=== PATIENT | male | born 2000 | race Caucasian/White ===

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

== ENCOUNTER 2020-06-21 16:59 | Emergency (ER) | payer BC, SELFPAY ==
[2020-06-21 17:16] VITALS: BP 125/61; PULSE 77; RESP 20; TEMP 36.6; O2SAT 99; BMI 26.8
--- NOTE | 2020-06-21 17:25 | HMH.EDUTC ---
[facility] – [place], [place] Disposition Clinical Impression: Exposure to COVID-19 virus Diarrhea Qualifiers: Diarrhea type: unspecified type Qualified Code(s): R19.7 - Diarrhea, unspecified Disposition: Home, Self-Care Condition on Discharge: Good Instructions: Preventing the Spread of Coronavirus Discharge Instructions Additional Instructions: You have been tested for COVID19 and your stool has also been sent for testing. Both of these should be available to your for results later tonight. Referrals: Choco Bowen MD [Primary Care Provider] - Time of Disposition: 17:39 Medical Decision Making - Jonh Inquiry Pt receiving controlled substance: No Vital Signs: 06/21/20 17:16 Temperature 97.8 F Temperature Source Oral Pulse Rate [Left Brachial] 77 Respiratory Rate 20 Blood Pressure [Left Arm] 125/61 Blood Pressure Mean [Left Arm] 82 Blood Pressure Source [Left Arm] Automatic Cuff Blood Pressure Position [Left Arm] Sitting 02 Sat by Pulse Oximetry 99 Oxygen Delivery Method Room Air Orders (Tests/Meds): ORDERS Category Date Time Status Diarrhea 23 Panel, PCR Stat Lab 06/21/20 17:24 Ordered [facility] – [place], [place] HPI - General Stated complaint: Sore throat, diarrhea Time Seen by Provider: 06/21/20 17:25 Mode of Arrival: Ambulatory Source of Information: Patient Limitations: No Limitations Description of Symptoms (Recalled from Triage Doc. by RN): PATIENT C/O DIARRHEA, STOMACH CRAMPING, COUGH, AND COLD SWEATS X 2 DAYS HEENT Symptoms (Recalled from RN notes): No Resp Symptoms (Recalled from RN notes): Yes Skin Symptoms (Recalled from RN notes): No MS Symptoms (Recalled from RN notes): No Functional Status (Recalled from RN notes): WNL - History of Present Illness Provider Complaint: Sore throat, cough, abdominal cramps and diarrhea X 2 days. No fever. Denies ear pain. Denies headache, sinus pressure, sinus congestion. Denies vomiting. Cough is occasionally productive. He does smoke. 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 Onset (ago): day(s) (2) Location: abdomen Relieving factors: none Exacerbating factors: none Associated symptoms: cough Treatments prior to arrival: none - Related Data Previous Rx's Medication Instructions Recorded olanzapine 5 mg tablet 5 mg PO QHS #30 tab 05/30/20 Allergies Allergy/AdvReac Type Severity Reaction Status Date / Time risperidone [From RISPERDAL] Allergy Mild Verified 01/20/20 13:26 - Worker's Comp Is this a Worker's Comp case?: No [facility] History - Hepatitis A Screen Drug use history?: No High risk sexual behaviors?: No History of sexually transmitted infection?: No Currently employed?: No Childcare worker?: No Do you have indoor plumbing?: Yes Do you have electricity?: Yes Attestation statement:: This patient has been screened for Hepatitis A risk factors. I have reviewed the patient's past medical history: Yes Medical History: Reports:: Anxiety, Depression, Hypertension Other Medical History: Reports: Other Comment: ADHD,Bipolar Other Surgeries: Yes: No Previous Surgery Amputation: No Fractures: No - Social History Smoking Status: Current every day smoker Tobacco Type: cigarettes # Packs/Day (cigarettes): 1 Alcohol Intake: never Alcohol Intake Frequency:: holidays/special occasions only Substance Use Type: marijuana Occupational Status: other Housing: house - Psychiatric History Pschychiatric History:: Reports:: Anxiety, Depression Family Hx:: Unable to obtain ROS Obtained: Yes All systems reviewed & no additional complaints - Constitutional Constitutional: Denies body ache, Denies chills, Denies fatigue, Denies fever(s), Denies malaise - Eyes Eyes: Denies eye discharge - ENT Ears, Nose, Mouth, and Throat: Denies dizziness, Denies nasal congestion, Denies sinus pain, Denies sinus pressure, Reports sore throat - Respiratory Respiratory: Yes cough, No dyspnea - Gastrointestinal
[2020-06-21 17:53] VITALS: BP 125/61; PULSE 77; RESP 20; TEMP 36.6; O2SAT 99
[2020-06-21 17:54] LABS: Adenovirus F 40/41, stool Not Detected (NotDetected); Astrovirus Not Detected (NotDetected); Campylobacter Not Detected (NotDetected); Cryptosporidium Not Detected (NotDetected); Cyclospora Cayetanesis Not Detected (NotDetected); Entamoeba histolytica Not Detected (NotDetected); Enteropathogenic E coli Not Detected (NotDetected); Enterotoxigenic E coli Not Detected (NotDetected); Giardia lamblia Not Detected (NotDetected); Norovirus Not Detected (NotDetected); Plesimonas Shigalloides, PCR Not Detected (NotDetected); Rotavirus A Not Detected (NotDetected); Salmonella, PCR Not Detected (NotDetected); Sapovirus Not Detected (NotDetected); Shiga-like toxin E coli Not Detected (NotDetected); Shigella Enterovasive E coli Not Detected (NotDetected); Vibrio Cholerae Not Detected (NotDetected); Vibrio, PCR Not Detected (NotDetected); Yersinia Entercolitica, PCR Not Detected (NotDetected)
[2020-06-21 20:17] LABS: Clostridium Difficile A/B, PCR Detected (NotDetected); Enteroaggregative E coli Detected (NotDetected)
== END 2020-06-21 18:02 | disposition home or self-care (01) ==
PROVIDERS: Emergency Provider Physician Assistant; PCP Emergency Medicine
DX: Z20.828 Contact with and (suspected) exposure to other viral communicable diseases (principal); F17.210 Nicotine dependence, cigarettes, uncomplicated; F41.8 Other specified anxiety disorders; Z88.8 Allergy status to other drugs, medicaments and biological substances
CPT/HCPCS: 87507; 99202; U0003

== ENCOUNTER 2020-07-13 21:02 | Emergency (ER) | payer BC, SELFPAY ==
[2020-07-13 21:03] VITALS: BP 129/71; PULSE 91; RESP 16; TEMP 36.9; O2SAT 95; BMI 26.6
--- NOTE | 2020-07-13 21:12 | PC.NURSE ---
Pt refuses to have IV, Notified
--- NOTE | 2020-07-13 21:18 | HMH.EDGENADL ---
ED Disposition Clinical Impression: Nausea Disposition: Home, Self-Care Condition on Discharge: Good Prescriptions: Ondansetron [Zofran 4mg ODT] 4 mg PO Q6H PRN #20 tab.rapdis PRN Reason: Nausea Prescription Printed Referrals: Choco Bowen MD [Primary Care Provider] - - Critical Care Critical Care Time: No Attestation: On 07/13/20, the high probability of a clinically significant, sudden or life threatening deterioration of the following system(s) required my full and direct attention, intervention and personal management. The time I documented below is in addition to time spent performing reported procedures but includes the following listed in this critical care notation. Medical Decision Making - Jonh Inquiry Pt receiving controlled substance: No Medical Decision Narrative: In summary patient presents for nausea. Patient's vitals are well-appearing, no tachycardia, no hypotension, patient is stable. Patient abdominal exam benign, nontender to palpation. Patient requesting Zofran, does not want IV access, would like a work note and nausea medication. Patient discharged home with prescription for Zofran. General Adult HPI - General Stated complaint: NAUSA Time Seen by Provider: 07/13/20 21:10 Mode of Arrival: Ambulatory Source of Information: Patient Limitations: No Limitations - History of Present Illness HPI narrative: Patient presents for nausea. Patient has not had episodes of vomiting, diarrhea, abdominal pain. Patient is concerned that there is something else going on patient patient does not want any IVs at this time, just wants a general work-up without labs. Patient denies drinking heavily last night, states that he smokes weed but denies any other illicit drugs, denies any other surgical history. Has no fever, chills, night sweats, chest pain, shortness of breath no abdominal pain, vomiting, diarrhea, rash. - Related Data Previous Rx's Medication Instructions Recorded olanzapine 5 mg tablet 5 mg PO QHS #30 tab 05/30/20 metroNIDAZOLE [Flagyl 500mg 500 mg PO TID 10 Days #30 tab 06/21/20 Tablet] Ondansetron [Zofran 4mg ODT] 4 mg PO Q6H PRN #20 tab.rapdis 07/13/20 Allergies Allergy/AdvReac Type Severity Reaction Status Date / Time risperidone [From RISPERDAL] Allergy Mild Verified 01/20/20 13:26 [facility] History - Hepatitis A Screen Attestation statement:: This patient has been screened for Hepatitis A risk factors. I have reviewed the patient's past medical history: Yes Medical History: Reports:: Anxiety, Depression, Hypertension Other Medical History: Reports: Other Comment: ADHD,Bipolar Other Surgeries: Yes: No Previous Surgery Amputation: No Fractures: No - Social History Smoking Status: Current every day smoker Tobacco Type: cigarettes # Packs/Day (cigarettes): 1 Alcohol Intake: never Alcohol Intake Frequency:: holidays/special occasions only Substance Use Type: marijuana Occupational Status: other Housing: house - Psychiatric History Pschychiatric History:: Reports:: Anxiety, Depression Family Hx:: Unable to obtain ROS Obtained: Yes All systems reviewed & no additional complaints Physical Exam - General General appearance: alert, in no apparent distress - ENT ENT exam: Present: normal exam, normal oropharynx, mucous membranes moist, normal external ear exam - Neck Neck exam: Present: normal inspection, full ROM, trachea midline. Absent: meningismus, lymphadenopathy - Chest Chest inspection: Present: normal inspection, symmetric chest wall rise. Absent: tenderness - Respiratory Respiratory exam: Present: normal lung sounds bilaterally. Absent: respiratory distress - Cardiovascular Cardiovascular exam: Present: regular rate, normal rhythm. Absent: JVD - Abdominal Exam Abdominal exam: Present: soft, normal bowel sounds. Absent: distention, tenderness, guarding - Neurological Exam Neurological exam: Present: alert,
[2020-07-13 21:29] VITALS: BP 132/70; PULSE 88; RESP 12; TEMP 36.9; O2SAT 98
== END 2020-07-13 21:30 | disposition home or self-care (01) ==
PROVIDERS: Emergency Provider Emergency Medicine; PCP Emergency Medicine
DX: R11.0 Nausea (principal); F41.8 Other specified anxiety disorders; I10 Essential (primary) hypertension; F17.210 Nicotine dependence, cigarettes, uncomplicated
CPT/HCPCS: 99281

== ENCOUNTER 2020-07-29 02:54 | Emergency (ER) | payer BC, SELFPAY ==
[2020-07-29 03:00] VITALS: BP 132/69; PULSE 80; RESP 16; TEMP 36.5; O2SAT 98; BMI 26.6
--- NOTE | 2020-07-29 03:01 | HMH.EDGENADL ---
ED Disposition Clinical Impression: Bilateral headaches GERD (gastroesophageal reflux disease) Qualifiers: Esophagitis presence: esophagitis presence not specified Qualified Code(s): K21.9 - Gastro-esophageal reflux disease without esophagitis Disposition: Home, Self-Care Condition on Discharge: Good Instructions: DI for Gastroesophageal Reflux Disease (GERD), DI for Headache Additional Instructions: Pepcid, [id number], as needed for acid reflux. Acetaminophen, [id number], as needed for headaches. Follow-up with your primary care provider if symptoms persist. Referrals: Choco Bowen MD [Primary Care Provider] - Forms: Work/School Release - Critical Care Critical Care Time: No Attestation: On , the high probability of a clinically significant, sudden or life threatening deterioration of the following system(s) required my full and direct attention, intervention and personal management. The time I documented below is in addition to time spent performing reported procedures but includes the following listed in this critical care notation. Medical Decision Making - Medical Records Medical records reviewed: Yes: I reviewed the patient's medical records. MR Comment: Similar visit to this emergency department 07/13/20, complained of nausea and wanted a work note. Did not want any tests. - Jonh Inquiry Pt receiving controlled substance: No Vital Signs: 07/29/20 03:00 Temperature 97.7 F Temperature Source Oral Pulse Rate [Right Brachial] 80 Respiratory Rate 16 Blood Pressure [Right Arm] 132/69 Blood Pressure Mean [Right Arm] 90 Blood Pressure Source [Right Arm] Automatic Cuff Blood Pressure Position [Right Arm] Sitting 02 Sat by Pulse Oximetry 98 Oxygen Delivery Method Room Air Orders (Tests/Meds): ED MEDICATIONS Discontinued Medications Generic Name Dose Route Start Last Admin Trade Name Jeny PRN Reason Stop Dose Admin Acetaminophen 650 mg 07/29/20 03:06 Acetaminophen 325mg Tab PO 07/29/20 03:07 ONCE ONE Famotidine 20 mg 07/29/20 03:06 Pepcid 20mg Tablet PO 07/29/20 03:07 ONCE ONE General Adult HPI - General Stated complaint: Headache and Nausea/Acid Reflux Time Seen by Provider: 07/29/20 03:00 - History of Present Illness HPI narrative: States he has been having mild bitemporal headaches and acid reflux since this morning. States his reflux is exacerbated by fast food. He gets it frequently. States this is caused him to miss work tonight and therefore he needs a work note. He has not tried any [id number] medications for symptoms and was hoping for some advice on what to use. No visual disturbance. No numbness or weakness of extremities. No neck stiffness. No URI symptoms. No abdominal or chest pain. - Related Data Previous Rx's Medication Instructions Recorded metroNIDAZOLE [Flagyl 500mg 500 mg PO TID 10 Days #30 tab 06/21/20 Tablet] Ondansetron [Zofran 4mg ODT] 4 mg PO Q6H PRN #20 tab.rapdis 07/13/20 olanzapine 5 mg tablet 5 mg PO QHS #30 tab 07/22/20 Allergies Allergy/AdvReac Type Severity Reaction Status Date / Time risperidone [From RISPERDAL] Allergy Mild Verified 01/20/20 13:26 [facility] History - Hepatitis A Screen Attestation statement:: This patient has been screened for Hepatitis A risk factors. I have reviewed the patient's past medical history: Yes Medical History: Reports:: Anxiety, Depression, Hypertension Other Medical History: Reports: Other Comment: ADHD,Bipolar Other Surgeries: Yes: No Previous Surgery Amputation: No Fractures: No - Social History Smoking Status: Current every day smoker Tobacco Type: cigarettes # Packs/Day (cigarettes): 1 Alcohol Intake: never Alcohol Intake Frequency:: holidays/special occasions only Substance Use Type: marijuana Occupational Status: other Housing: house - Psychiatric History Pschychiatric History:: Reports:: Anxiety, Depression Fam
[2020-07-29 03:18] VITALS: BP 130/75; PULSE 75; RESP 15; TEMP 36.6; O2SAT 98
== END 2020-07-29 03:20 | disposition home or self-care (01) ==
PROVIDERS: Emergency Provider Emergency Medicine; PCP Emergency Medicine
DX: R51 Headache (principal); K21.9 Gastro-esophageal reflux disease without esophagitis; F41.8 Other specified anxiety disorders; I10 Essential (primary) hypertension; F17.210 Nicotine dependence, cigarettes, uncomplicated
CPT/HCPCS: 99281

== ENCOUNTER 2021-01-15 14:15 | Emergency (ER) | payer BC, SELFPAY ==
[2021-01-15 14:16] VITALS: BP 155/78; PULSE 90; RESP 16; TEMP 37.1; O2SAT 98; BMI 22.1
--- NOTE | 2021-01-15 14:32 | PC.NURSE ---
VISUAL ACUITY RT EYE 20/70, PT STATES UNABLE TO READ CHART WITH LT EYE.
--- NOTE | 2021-01-15 14:45 | HMH.EDGENADL ---
ED Disposition Clinical Impression: Left corneal abrasion Qualifiers: Encounter type: initial encounter Qualified Code(s): S05.02XA - Injury of conjunctiva and corneal abrasion without foreign body, left eye, initial encounter Disposition: Home, Self-Care Condition on Discharge: Good Instructions: DI for Corneal Abrasion Additional Instructions: Use erythromycin ointment in left eye, 1 application 4 times a day. [place] as needed for pain. Additional instructions for EYE PAIN or INJURY: Follow up with Dr. Harvey at [facility] as soon as possible. Return to the emergency department if severe pain, loss of vision, pus drainage, severe swelling or redness of eyelids. Dr. Mayo Harvey [place] [address] [place] [address] Additional instructions for CONTROLLED SUBSTANCES: You have been prescribed a medication that is a controlled substance. Controlled substances include pain medications known as opiates and sedative nerve medications known as benzodiazepines. Tramadol, fioricet, and gabapentin are also controlled substances. Some common opiates include: Codeine (such as Tylenol #3) Hydrocodone (Vicodin, Lortab, Lorcet, [place]) Oxycodone (Percocet, Percodan, Oxycodone, Oxy IR) Some common benzodiazepines include: Diazepam (Valium) Lorazepam (Ativan) Alprazolam (Xanax) Clonazepam (Klonopin) Oxazepam (Serax) All of these controlled substances are highly addictive and frequently abused. Misuse can and frequently does lead to addiction as well as overdose and . Medication should be stored in a locked cabinet or other secure storage unit. Do not store the medication in a motor vehicle. Short term supplies, 3 days or less, are prescribed because of the highly addictive nature of the medication. Any of the controlled substance medication NOT taken should be disposed of properly and NOT SAVED. The recommended method of disposing of unused medications is: Place the medicines in a sealable plastic bag. If the medicine is a solid, crush it or add water to dissolve it. Add something undesirable (cat litter, coffee grounds, etc.) Dispose of sealed bag in household trash Do not flush or pour unused medicines down a sink or drain. Controlled substances should not be shared, given away or sold. Because of the addictive nature and frequent abuse, these medications are sometimes stolen. These medications should be kept in a safe place where they cannot be stolen. Do not keep them in your car or purse. Lost or stolen prescriptions for controlled substances WILL NOT BE REFILLED in this emergency department, regardless of whether a police report was filed. Prescriptions: Hydrocodone/Acetaminophen [Hydrocodon-Acetaminoph 7.5-325] 1 each PO Q6HP PRN #8 tab PRN Reason: Moderate Pain [id number] Hydrocod/Acet 5/325 mg [[place] 5/325mg tablet] 1 tab PO Q6HP PRN #8 tab PRN Reason: Pain Transmission Status: [id number] Referrals: Choco Bowen MD [Primary Care Provider] - - Critical Care Critical Care Time: No Attestation: On 01/15/21, the high probability of a clinically significant, sudden or life threatening deterioration of the following system(s) required my full and direct attention, intervention and personal management. The time I documented below is in addition to time spent performing reported procedures but includes the following listed in this critical care notation. Medical Decision Making - Jonh Inquiry Pt receiving controlled substance: Yes Jonh was queried for this patient: Yes Risks and benefits of using a controlled substance: were discussed with pt by me Vital Signs: 01/15/21 14:16 Temperature 98.7 F Temperature Source Oral Pulse Rate [Radial] 90 Respiratory Rate 16 Blood Pressure [Right Arm] 155/78 H Blood Pressure Mean [Right Arm] 103 Blood Pressure Posi
--- NOTE | 2021-01-15 15:00 | PC.NURSE ---
VISUAL ACUITY LT EYE 20/70
[2021-01-15 15:25] VITALS: BP 150/78; PULSE 78; RESP 16; TEMP 36.6; O2SAT 98
== END 2021-01-15 15:27 | disposition home or self-care (01) ==
PROVIDERS: Emergency Provider Emergency Medicine; PCP Emergency Medicine
DX: S05.02XA Injury of conjunctiva and corneal abrasion without foreign body, left eye, initial encounter (principal); F41.8 Other specified anxiety disorders; I10 Essential (primary) hypertension; F17.210 Nicotine dependence, cigarettes, uncomplicated
CPT/HCPCS: 99281

== ENCOUNTER → 2021-08-29 13:14 | Outpatient (CLI) | payer BC, SELFPAY | PROVIDERS: PCP Emergency Medicine; Visit Provider Emergency Medicine | DX: G47.30 Sleep apnea, unspecified; R06.83 Snoring | CPT/HCPCS: 95806 ==